=== PATIENT | male | born 2000 | race African-American/Black ===

== ENCOUNTER 2019-05-21 10:39 | Emergency (ER) | payer BC ==
[~2019-05-21] VITALS: Ht 175.3 cm; Wt 77.1 kg
[2019-05-21 11:18] VITALS: BP 125/60
--- NOTE | 2019-05-21 11:29 | PHYS DOC ---
Past Medical History Past Medical History: No Pertinent History Past Surgical History: No Surgical History Alcohol Use: None Drug Use: None Adult General Chief Complaint Chief Complaint: THUMB HPI HPI Patient is a 18 year old male who presents with the splint basketball and jammed the right thumb on Monday. Patient states his pain a 2 out of 10. Patient can bend the thumb at the seat MC joint and metacarpophalangeal joint but cannot and the thumb at the interphalangeal joint. Patient's interphalangeal joint has laxity. Review of Systems Review of Systems Musculoskeletal: Denies back pain. Right thumb joint pain [] [] All other systems were reviewed and found to be within normal limits, except as documented in this note. Allergies Allergies Allergies Coded Allergies Type Severity Reaction Last Updated Verified iodine Allergy Mild 05/21/19 Yes Physical Exam Physical Exam Constitutional: Well developed, well nourished, no acute distress, non-toxic appearance. [] Skin: Warm, dry, no erythema, no rash. [] Extremities: No tenderness, no cyanosis, no clubbing, Right thumb ROM not intact, no edema. [] Neurologic: Alert and oriented X 3, normal motor function, normal sensory function, no focal deficits noted. [] Psychologic: Affect normal, judgement normal, mood normal. [] Current Patient Data Vital Signs Vital Signs Date Time Temp Pulse Resp B/P (MAP) Pulse Ox O2 Delivery O2 Flow Rate FiO2 05/21/19 11:18 97.7 56 16 125/60 (81) 98 Room Air 97.7 EKG EKG [] Radiology/Procedures Radiology/Procedures [] Impressions: [facility] [address] [place], [place] [id number] IMAGING REPORT Signed PATIENT: RUDY GOEL AACCOUNT: [id number] : 2000 LOCATION: ER AGE: 18 SEX: M EXAM STATUS: REG ER ORD. PHYSICIAN: MARY ANN MAYS APRN REASON: Jammed right thumb playing basketball Monday PROCEDURE: HAND RIGHT 3V Examination: HAND RIGHT 3V History: Jammed right thumb while playing basketball a few days ago. Pain. Comparison/Correlation: None Findings: Total 3 images of the right hand were obtained. Joint spaces are unremarkable. Minimal spurring involving the first digit proximal phalangeal base noted. No fracture or bony destruction identified. Interphalangeal joint of the thumb is partially flexed. Soft tissues are grossly unremarkable. Impression: No fracture or bone destruction. Consider further imaging possibly with MRI if occult process is a persistent concern. Electronically signed by: Gonzalez Griffiths MD (05/21/2019 11:51 AM) [facility] DICTATED and SIGNED BY: GONZALEZ GRIFFITHS MD DATE: 05/21/19 1151 Course & Med Decision Making Course & Med Decision Making Alert and oriented. And was wearing a gait. Skin pink warm and dry. Right radial pulses are present. Cap refill less than 3 seconds. There is 1+ swelling to the thumb but no obvious deformity. Denies numbness or tingling. metal splint placed and patient to follow up with Dr Johnson. Bita Disclaimer Bita Disclaimer This electronic medical record was generated, in whole or in part, using a voice recognition dictation system. Departure Departure Impression: Primary Impression: Thumb pain Disposition: 01 HOME, SELF-CARE Condition: STABLE Referrals: NON,STAFF (PCP) ALEXIS JOHNSON MD Patient Instructions: Thumb Sprain Additional Instructions: Call and follow up with Dr. Johnson within the next couple of days. Keep the splint on. Problem Qualifiers Primary Impression: Thumb pain Laterality: right Qualified Codes: M79.644 - Pain in right finger(s) MARY ANN MAYS APRN May 21, 2019 11:29
--- NOTE | 2019-05-21 11:54 | RAD ---
Examination: HAND RIGHT 3V History: Jammed right thumb while playing basketball a few days ago. Pain. Comparison/Correlation: None Findings: Total 3 images of the right hand were obtained. Joint spaces are unremarkable. Minimal spurring involving the first digit proximal phalangeal base noted. No fracture or bony destruction identified. Interphalangeal joint of the thumb is partially flexed. Soft tissues are grossly unremarkable. Impression: No fracture or bone destruction. Consider further imaging possibly with MRI if occult process is a persistent concern. Electronically signed by: Gonzalez Chong MD (05/21/2019 11:51 AM) [facility]
== END 2019-05-21 12:27 | disposition home or self-care (01) ==
LOC: ER 10:39
DX: M79.644 Pain in right finger(s) (principal); Z88.8 Allergy status to other drugs, medicaments and biological substances
CPT/HCPCS: 29125; 73130; 99284-25